=== PATIENT | male | born 1965 | race Two or more races ===

== ENCOUNTER 2017-02-21 19:55 | Emergency (ER) | payer OTHER ==
--- NOTE | 2017-02-21 20:13 | NUR ---
CALLED FOR TRIAGE. NO ANSWER.
--- NOTE | 2017-02-21 20:23 | NUR ---
CALLED FOR TRIAGE, NO ONE IN [place].
--- NOTE | 2017-02-21 20:30 | NUR ---
Called for triage, no one in [place]. LWBT.
== END 2017-02-21 20:34 | disposition left against medical advice (07) ==
LOC: ER 19:58
DX: Z53.21 Procedure and treatment not carried out due to patient leaving prior to being seen by health care provider (principal)